=== PATIENT | male | born 1945 | race Caucasian/White ===

== ENCOUNTER → 2024-03-17 12:39 | Outpatient (REF) | payer MEDICARE, BC, SELFPAY | LOC: CLAB 12:39 | PROVIDERS: ATTENDING PHYSICIAN Surgery | DX: K52.89 Other specified noninfective gastroenteritis and colitis (principal) | CPT/HCPCS: 88305; 88341; 88342 ==

== ENCOUNTER → 2024-04-07 16:33 | Outpatient (REF) | payer MEDICARE, BC, SELFPAY | LOC: OLAB 16:33 | PROVIDERS: ATTENDING PHYSICIAN Surgery | DX: K62.89 Other specified diseases of anus and rectum (principal) | CPT/HCPCS: 88305 ==

== ENCOUNTER 2024-05-14 06:32 | Day surgery (SDC) | payer MEDICARE, BC, SELFPAY ==
--- NOTE | 2024-05-13 13:52 | PTCARENOTE ---
ABN ECG, Dr. Key notified, no further requests made.
[2024-05-14] VITALS (7 sets, daily range): BP systolic 98–125; BP diastolic 48–70
[2024-05-14] MEDS: NORMOSOL-R 1000 IV (11:50)
== END 2024-05-14 16:09 | disposition home or self-care (01) ==
LOC: SDS 06:32
PROVIDERS: ATTENDING PHYSICIAN Surgery
DX: C21.0 Malignant neoplasm of anus, unspecified (principal); K62.4 Stenosis of anus and rectum; K62.89 Other specified diseases of anus and rectum
CPT/HCPCS: 46606; 88305; 88342

== ENCOUNTER → 2024-05-21 10:47 | Outpatient (REF) | payer MEDICARE, BC, SELFPAY | LOC: HWRAD 10:47 | PROVIDERS: ATTENDING PHYSICIAN Surgery; FAMILY PHYSICIAN Family Medicine | DX: C21.0 Malignant neoplasm of anus, unspecified (principal) | CPT/HCPCS: 71260; 74177; Q9967 ==

== ENCOUNTER → 2024-06-12 08:04 | Outpatient (REF) | payer MEDICARE, BC, SELFPAY ==
[2024-06-12 10:32] LABS: Hemoglobin 15.3 g/dL (13.0-18.0); Mean Corp Hgb Conc. 35.6 g/dL (33.0-37.0); Mean Platelet Volume 9.5 fL (7.4-10.4); Platelet Count 203 10^3/uL (130-400); Red Blood Cell Count 4.78 10^6/uL (4.70-6.10); Red Cell Dist. Width 13.2 % (11.5-14.5); White Blood Cell Count 7.7 10^3/uL (4.8-10.8)
[2024-06-12 11:08] LABS: Blood Urea Nitrogen 16 mg/dl (9-20); Calcium 10.9 mg/dl (8.4-10.2); Carbon Dioxide 27 mmol/L (22-30); Chloride 97 mmol/L (98-107); Glucose 97 mg/dl (70-99); Potassium 5.6 mmol/L (3.5-5.1); Sodium 135 mmol/L (135-145); eGFR > 60.00
== END ==
LOC: SDSPAT 08:04
PROVIDERS: ATTENDING PHYSICIAN Surgery; FAMILY PHYSICIAN Family Medicine
DX: Z01.818 Encounter for other preprocedural examination (principal)
CPT/HCPCS: 36415; 80048; 85027

== ENCOUNTER 2024-06-17 06:17 | Day surgery (SDC) | payer MEDICARE, BC, SELFPAY ==
[2024-06-12 08:19] VITALS: BMI 28.9
--- NOTE | 2024-06-15 09:58 | PTCARENOTE ---
Yaz in office made aware of K 5.6 from 06/12/24.
--- NOTE | 2024-06-15 14:27 | PTCARENOTE ---
Dr Pacheco made aware of K 5.6, no further action requested.
[2024-06-17] VITALS (10 sets, daily range): BP systolic 101–143; BP diastolic 52–86; BMI 28.9
[2024-06-17] MEDS: NSS 1000 IV (06:40)
[2024-06-17] MEDS: TYLENOL 1000 MG PO (06:55)
[2024-06-17 07:12] LABS: Blood Urea Nitrogen 12 mg/dl (9-20); Calcium 10.7 mg/dl (8.4-10.2); Carbon Dioxide 23 mmol/L (22-30); Chloride 101 mmol/L (98-107); Estimated Creatinine Clearance 71 ml/min; Glucose 110 mg/dl (70-99); Potassium 4.3 mmol/L (3.5-5.1); Sodium 137 mmol/L (135-145); eGFR > 60.00
[2024-06-17] MEDS: DILAUDID 0.25 MG IV (10:03)
== END 2024-06-17 12:10 | disposition home or self-care (01) ==
LOC: SDS 06:17
PROVIDERS: ATTENDING PHYSICIAN Surgery
DX: K40.91 Unilateral inguinal hernia, without obstruction or gangrene, recurrent (principal); D17.6 Benign lipomatous neoplasm of spermatic cord
CPT/HCPCS: 49651; 88304; 88307; 80048; C1781

== ENCOUNTER → 2024-07-03 08:37 | Outpatient (REF) | payer MEDICARE, BC, SELFPAY ==
[2024-07-03] VITALS (8 sets, daily range): BP systolic 86–147; BP diastolic 57–77
[2024-07-03] MEDS: ANCEF 10 IV (09:43)
== END ==
LOC: RADI 08:37
PROVIDERS: ATTENDING PHYSICIAN Internal Medicine Hematology & Oncology; FAMILY PHYSICIAN Family Medicine; OTHER PHYSICIAN Surgery; REFERRING PHYSICIAN Radiology Radiation Oncology
DX: C21.0 Malignant neoplasm of anus, unspecified (principal)
CPT/HCPCS: 36561; 76937; 77001; 99152; 99153; C1788

== ENCOUNTER → 2024-07-13 14:51 | Outpatient (REF) | payer MEDICARE, BC, SELFPAY ==
[2024-07-13 15:33] LABS: % Basophils 0.6 % (0-2); % Eosinophils 0.6 % (0-6); % Lymphocytes 12.4 % (20.5-51.1); % Monocytes 2.9 % (1.7-9.3); % Neutrophils 82.5 % (42.2-75.2); Absolute Immature Granulocytes 0.1 10^3/uL (0-0.05); Absolute Lymphocytes 0.7 10^3/uL (1.2-3.4); Absolute Monocytes 0.2 10^3/uL (0.1-0.6); Absolute Neutrophils 4.3 10^3/uL (1.4-6.5); Hematocrit 38.4 % (39.0-52.0); Hemoglobin 13.5 g/dL (13.0-18.0); Mean Corp Hgb Conc. 35.2 g/dL (33.0-37.0); Mean Corpuscular Hgb 30.1 pg (27.0-31.0); Mean Corpuscular Volume 85.7 fL (80.0-94.0); Nucleated Red Blood Cells % 0 % (-); Platelet Count 173 10^3/uL (130-400); Red Blood Cell Count 4.48 10^6/uL (4.70-6.10); Red Cell Dist. Width 12.6 % (11.5-14.5); White Blood Cell Count 5.3 10^3/uL (4.8-10.8)
[2024-07-13 15:47] LABS: ALT (SGPT) 24 U/L (0-50); AST (SGOT) 27 U/L (17-59); Albumin 3.8 g/dl (3.5-5.0); Alkaline Phosphatase 43 U/L (38-126); Blood Urea Nitrogen 12 mg/dl (9-20); Carbon Dioxide 26 mmol/L (22-30); Chloride 94 mmol/L (98-107); Glucose 107 mg/dl (70-99); Potassium 4.2 mmol/L (3.5-5.1); Sodium 131 mmol/L (135-145); Total Bilirubin 3.9 mg/dl (0.2-1.3); eGFR > 60.00
== END ==
LOC: REG 14:51
PROVIDERS: ATTENDING PHYSICIAN Internal Medicine Hematology & Oncology; FAMILY PHYSICIAN Family Medicine
DX: C21.0 Malignant neoplasm of anus, unspecified (principal)
CPT/HCPCS: 36415; 80053; 85025

== ENCOUNTER → 2024-07-20 09:15 | Outpatient (REF) | payer MEDICARE, BC, SELFPAY ==
[2024-07-20 11:43] LABS: Hematocrit 36.6 % (39.0-52.0); Hemoglobin 13.2 g/dL (13.0-18.0); Mean Corp Hgb Conc. 36.1 g/dL (33.0-37.0); Mean Corpuscular Hgb 31.7 pg (27.0-31.0); Mean Platelet Volume 9.2 fL (7.4-10.4); Platelet Count 75 10^3/uL (130-400); Red Blood Cell Count 4.16 10^6/uL (4.70-6.10); Red Cell Dist. Width 12.4 % (11.5-14.5); White Blood Cell Count 1.6 10^3/uL (4.8-10.8)
[2024-07-20 11:44] LABS: Absolute Neutrophils -Man Diff 0.8 10^3/uL (1.4-6.5); Anisocytosis 1+; Band Neutrophils 0 % (0-3); Eosinophils 2 % (0-6); Hypochromasia 1+; Lymphocytes 24 % (20-51); Monocytes 18 % (2-9); Normal RBC Morphology No; Platelets Checked Yes; Segmented Neutrophils 56 % (42-75)
[2024-07-20 11:45] LABS: Acanthocytes 2+; Polychromasia 1+; Total Cells Counted 100
== END ==
LOC: REG 09:15
PROVIDERS: ATTENDING PHYSICIAN Internal Medicine Hematology & Oncology; FAMILY PHYSICIAN Family Medicine; OTHER PHYSICIAN Internal Medicine Hematology & Oncology
DX: C21.0 Malignant neoplasm of anus, unspecified (principal)
CPT/HCPCS: 36415; 85025

== ENCOUNTER → 2024-07-27 08:55 | Outpatient (REF) | payer MEDICARE, BC, SELFPAY ==
[2024-07-27 10:27] LABS: White Blood Cell Count 2.2 10^3/uL (4.8-10.8)
[2024-07-27 10:48] LABS: ALT (SGPT) 21 U/L (0-50); AST (SGOT) 26 U/L (17-59); Albumin 3.6 g/dl (3.5-5.0); Alkaline Phosphatase 52 U/L (38-126); Blood Urea Nitrogen 12 mg/dl (9-20); Carbon Dioxide 24 mmol/L (22-30); Chloride 98 mmol/L (98-107); Glucose 94 mg/dl (70-99); Potassium 4.2 mmol/L (3.5-5.1); Sodium 133 mmol/L (135-145); Total Bilirubin 1.9 mg/dl (0.2-1.3); Total Protein 5.7 g/dl (6.3-8.2); eGFR > 60.00
[2024-07-27 11:45] LABS: Absolute Neutrophils -Man Diff 1.3 10^3/uL (1.4-6.5); Band Neutrophils 2 % (0-3); Hematocrit 34.5 % (39.0-52.0); Hemoglobin 12.5 g/dL (13.0-18.0); Lymphocytes 23 % (20-51); Mean Corp Hgb Conc. 36.2 g/dL (33.0-37.0); Mean Corpuscular Hgb 31.1 pg (27.0-31.0); Mean Corpuscular Volume 85.8 fL (80.0-94.0); Mean Platelet Volume 8.8 fL (7.4-10.4); Metamyelocytes 2 % (-); Monocytes 13 % (2-9); Platelet Count 177 10^3/uL (130-400); Platelets Checked Yes; Red Blood Cell Count 4.02 10^6/uL (4.70-6.10); Red Cell Dist. Width 14.1 % (11.5-14.5); Segmented Neutrophils 60 % (42-75)
[2024-07-27 11:46] LABS: Acanthocytes 2+; Anisocytosis 1+; Hypochromasia 1+; Normal RBC Morphology No; Ovalocytes 1+
[2024-07-27 11:47] LABS: Total Cells Counted 100
== END ==
LOC: REG 08:55
PROVIDERS: ATTENDING PHYSICIAN Internal Medicine Hematology & Oncology; FAMILY PHYSICIAN Family Medicine
DX: C21.0 Malignant neoplasm of anus, unspecified (principal)
CPT/HCPCS: 36415; 80053; 85025

== ENCOUNTER → 2024-08-20 12:58 | Outpatient (REF) | payer MEDICARE, BC, SELFPAY | LOC: RAD 12:58 | PROVIDERS: ATTENDING PHYSICIAN Family Medicine | DX: I48.19 Other persistent atrial fibrillation (principal); I95.9 Hypotension, unspecified; R60.0 Localized edema | CPT/HCPCS: 93970 ==

== ENCOUNTER → 2024-09-21 10:12 | Outpatient (REF) | payer MEDICARE, BC, SELFPAY ==
[2024-09-21 11:11] LABS: % Basophils 0.8 % (0-2); % Eosinophils 4.6 % (0-6); % Immature Granulocytes 0.4 % (0-0.5); % Lymphocytes 9.1 % (20.5-51.1); % Monocytes 12.2 % (1.7-9.3); % Neutrophils 72.9 % (42.2-75.2); Absolute Eosinophils 0.2 10^3/uL (0-0.7); Absolute Lymphocytes 0.4 10^3/uL (1.2-3.4); Absolute Monocytes 0.6 10^3/uL (0.1-0.6); Absolute Neutrophils 3.5 10^3/uL (1.4-6.5); Hematocrit 37.4 % (39.0-52.0); Hemoglobin 12.4 g/dL (13.0-18.0); Mean Corp Hgb Conc. 33.2 g/dL (33.0-37.0); Mean Corpuscular Hgb 31.7 pg (27.0-31.0); Mean Corpuscular Volume 95.7 fL (80.0-94.0); Mean Platelet Volume 9.3 fL (7.4-10.4); Nucleated Red Blood Cells % 0 % (-); Platelet Count 145 10^3/uL (130-400); Red Blood Cell Count 3.91 10^6/uL (4.70-6.10); Red Cell Dist. Width 16.8 % (11.5-14.5); White Blood Cell Count 4.8 10^3/uL (4.8-10.8)
[2024-09-21 11:40] LABS: ALT (SGPT) 25 U/L (0-50); AST (SGOT) 30 U/L (17-59); Albumin 3.9 g/dl (3.5-5.0); Alkaline Phosphatase 45 U/L (38-126); Blood Urea Nitrogen 14 mg/dl (9-20); Calcium 10.2 mg/dl (8.4-10.2); Carbon Dioxide 30 mmol/L (22-30); Chloride 96 mmol/L (98-107); Glucose 92 mg/dl (70-99); Potassium 4.1 mmol/L (3.5-5.1); Sodium 133 mmol/L (135-145); Total Bilirubin 2.4 mg/dl (0.2-1.3); Total Protein 6.1 g/dl (6.3-8.2); eGFR > 60.00
== END ==
LOC: REG 10:12
PROVIDERS: ATTENDING PHYSICIAN Internal Medicine Hematology & Oncology; FAMILY PHYSICIAN Family Medicine
DX: C21.0 Malignant neoplasm of anus, unspecified (principal)
CPT/HCPCS: 36415; 80053; 85025

== ENCOUNTER → 2024-09-29 13:09 | Outpatient (REF) | payer MEDICARE, BC, SELFPAY | LOC: RAD 13:09 | PROVIDERS: ATTENDING PHYSICIAN Internal Medicine Interventional Cardiology; FAMILY PHYSICIAN Family Medicine | DX: I48.19 Other persistent atrial fibrillation (principal); I42.2 Other hypertrophic cardiomyopathy; E78.2 Mixed hyperlipidemia | CPT/HCPCS: 75572; Q9967 ==

== ENCOUNTER → 2024-10-06 10:10 | Outpatient (REF) | payer MEDICARE, BC, SELFPAY ==
--- NOTE | 2024-10-06 11:33 | CARDSERVLU ---
Echocardiogram with Lumason completed after protocol screening completed. Allergies verified.
Patent IV site: _new start 20 P 1st attempt RFA____
IV site flushed with 0.9% NaCl pre and post administration.
Diluted bolus method utilized to enhance visualization of ventricular de la garza.
Total volume given: __6.5__ mL
site dcd at completion of test, no issues.
Patient tolerated all procedures well without complications.
== END ==
LOC: RCS 10:10
PROVIDERS: ATTENDING PHYSICIAN Internal Medicine Interventional Cardiology; FAMILY PHYSICIAN Family Medicine
DX: I42.2 Other hypertrophic cardiomyopathy (principal); I48.19 Other persistent atrial fibrillation; E78.2 Mixed hyperlipidemia
CPT/HCPCS: 93306; Q9950

== ENCOUNTER → 2024-11-17 08:24 | Outpatient (REF) | payer MEDICARE, BC, SELFPAY | LOC: RCS 08:24 | PROVIDERS: ATTENDING PHYSICIAN Internal Medicine Interventional Cardiology; FAMILY PHYSICIAN Family Medicine | DX: I42.2 Other hypertrophic cardiomyopathy (principal); I48.19 Other persistent atrial fibrillation; I10 Essential (primary) hypertension; I51.3 Intracardiac thrombosis, not elsewhere classified | CPT/HCPCS: 93307; Q9957 ==

== ENCOUNTER 2024-12-01 06:05 | Inpatient (IN) | payer MEDICARE, BC, SELFPAY ==
[2024-11-17 11:15] LABS: % Eosinophils 1.5 % (0-6); % Immature Granulocytes 0.5 % (0-0.5); % Lymphocytes 8.5 % (20.5-51.1); % Monocytes 11.3 % (1.7-9.3); % Neutrophils 77.2 % (42.2-75.2); Absolute Eosinophils 0.1 10^3/uL (0-0.7); Absolute Lymphocytes 0.3 10^3/uL (1.2-3.4); Absolute Monocytes 0.5 10^3/uL (0.1-0.6); Absolute Neutrophils 3.1 10^3/uL (1.4-6.5); Hematocrit 38.5 % (39.0-52.0); Hemoglobin 13.4 g/dL (13.0-18.0); Mean Corp Hgb Conc. 34.8 g/dL (33.0-37.0); Mean Corpuscular Hgb 32.8 pg (27.0-31.0); Mean Corpuscular Volume 94.1 fL (80.0-94.0); Mean Platelet Volume 9.4 fL (7.4-10.4); Nucleated Red Blood Cells % 0 % (-); Platelet Count 129 10^3/uL (130-400); Red Blood Cell Count 4.09 10^6/uL (4.70-6.10); Red Cell Dist. Width 13.6 % (11.5-14.5)
[2024-11-17 11:24] LABS: ALT (SGPT) 21 U/L (0-50); AST (SGOT) 30 U/L (17-59); Alkaline Phosphatase 56 U/L (38-126); Blood Urea Nitrogen 16 mg/dl (9-20); Calcium 10.2 mg/dl (8.4-10.2); Carbon Dioxide 29 mmol/L (22-30); Chloride 98 mmol/L (98-107); Glucose 106 mg/dl (70-99); Potassium 4.3 mmol/L (3.5-5.1); Sodium 133 mmol/L (135-145); Total Protein 6.2 g/dl (6.3-8.2); eGFR > 60.00
[2024-11-17 11:25] LABS: INR 1.33; PT 16.7 Sec (11.4-14.6)
[2024-11-17 14:04] VITALS: BMI 27.4
[2024-12-01] VITALS (31 sets, daily range): BP systolic 93–126; BP diastolic 57–81; BMI 27.3
--- NOTE | 2024-12-01 08:24 | WATCHMAN.MD ---
Watchman Implant
-
ELECTROPHYSIOLOGY/INTERVENTIONAL PROCEDURE REPORT
Date of Procedure: December 01, 2024
Assisting Physician: Tim Gifford
PROCEDURES:
1. Left atrial appendage occlusion device using 27 mm WATCHMAN FLX device
2. Intracardiac echocardiography
3. Ultrasound-guided right common femoral venous access
INDICATION: Paroxysmal atrial fibrillation warranting long-term full anticoagulation with prior bleeding history secondary to prostate cancer
ACCESS: Right common femoral vein, 16Fr sheath and 9Fr. sheaths, under US guidance using micropunture kit.
HEMODYNAMICS : (mmHg)
RA Pressure : 10
LA Pressure: 15
PROCEDURE REPORT:
After informed consent and patient safety 'Timeout' the patient was intubated and sedated by the anesthesiology service. Under ultrasound guidance, the right femoral vein was accessed by Dr. Tim Gifford twice for transseptal puncture and
intracardiac ultrasound, respectively. Concomitant transesophageal echocardiogram was performed by Dr. Dexter Hairston
Baseline intracardiac ultrasound demonstrated no pericardial effusion and baseline DIMITRY images revealed a trace pericardial effusion.
After ruling out a left atrial appendage thrombus, the patient was heparinized for an ACT between 350-400 seconds and under DIMITRY and intracardiac ultrasound guidance transseptal puncture was performed by Dr. Tim Gifford using the versa cross
Inland trans-septal system in a inferior position on the inferior-superior axis and a mid position on the anterior-posterior axis. Right atrial pressure was 10 millimeters mercury and left atrial pressure was 15 millimeters mercury.
Once transseptal puncture was performed over the Inland wire which was parked in the body of the left atrium, the watchman access double curve sheath. A 5 Swiss pigtail catheter was placed into the left atrial appendage and an appendage gram was
performed using intravenous contrast dye demonstrating a windsock type anatomy that was suitable likely for a 20 mm WATCHMAN FLX device.
After appropriately prepping the device, Dr. Rachelle Marrero successfully deployed a 27 mm WATCHMAN FLX device. Device showed excellent positioning with no leaks post device deployment. 11 to 22 % compression was noted in the device after deployment.
A 'tug-test' was performed demonstrating stability of the device. Given PASS criteria were met, the device was then released successfully by Dr. Rachelle Marrero
Post procedure, DIMITRY imaging demonstrated no new or worse pericardial effusion. Sheaths and catheters were removed from the left atrium and heparin was reversed using protamine. Catheters removed from the femoral veins with [id number]-ax-xvryr suture
applied. The patient tolerated the procedure well.
RADIATION SUMMARY: Fluoro Time (min): 9.1, Dose (mGy): 201.46, DAP (Gy.cm2) : 23.0
Closure Device: Figure of 8 suture
CONCLUSIONS
1. Successful deployment of 27 mm WATCHMAN FLX device under DIMITRY and ICE guidance.
RECOMMENDATIONS
1. Given history of apical hypertrophic cardiomyopathy and recent LV thrombus, given it was not well-visualized on DIMITRY, we will first plan to repeat limited transthoracic echocardiogram with Lumason to assess presence or absence of LV thrombus. If
no LV thrombus is present or if it is smaller, our plan will be to resume home Eliquis at 5 mg twice daily for the next 3 months. In case there is a similar LV thrombus present, we would then plan to bridge with IV heparin drip into Coumadin.
2. 90-day DIMITRY post procedure to assess stability of device and rule out any irene-device leaks.
3. Figure of 8 suture removal prior to discharge.
Maintain anticoagulation regimen as noted above after watchman implantation and then reassess at the 3-month DIMITRY. If at that point the device is well-seated ,no significant leaks and no device related thrombus is observed we can stop
Eliquis/coumadin and maintain aspirin 81 mg daily
At post procedure DIMITRY leaks > 5mm are significant and require chronic full anticoagulation or consideration for leak closure. Irene-device leaks between 3 and 5 mm may also carry an increased risk. These patients will need individualized risk
assessment and discussion with Watchman team. Leaks < 3 mm are generally considered non-significant. With leak of any size suggestion is to check DIMITRY 12 mo out from implant.
Rachelle Marrero MD, FACC, [facility]
--- NOTE | 2024-12-01 10:26 | CARDSERVLU ---
Echocardiogram with Lumason completed after protocol screening completed. Allergies verified.
Patent IV site: __existing TC LAC #20___
IV site flushed with 0.9% NaCl pre and post administration.
Diluted bolus method utilized to enhance visualization of ventricular de la garza.
Total volume given: _5.0___ mL in divided doses under direction echosonographer.
Patient tolerated all procedures well without complications.
[2024-12-01 10:32] LABS: ACT-LR - POC > 397 Seconds (116-155)
--- NOTE | 2024-12-01 11:39 | WATCHMAN.MD ---
Watchman Implant
-
WATCHMAN LEFT ATRIAL APPENDAGE CLOSURE DEVICE REPORT
Date: 2024
Referring Dip Painter: Dr. Rachelle Marrero
Primary Care Provider: Dr. Chris Vanessa
History:
atrial fibrillation with [id number] = 4 as well as known apical hypertrophic cardiomyopathy with high bleeding risk in the setting of known colorectal cancer and possible need for ongoing chemo and radiation with prior history of GI bleeding leading
to disruption of anticoagulation
Watchman Team:
DIMITRY: Dr Dexter renteria M.D.
Transseptal prepress operator: Dr Tim Gifford M.D.
Implanter: Dr Rachelle Marrero M.D.
Procedure: Watchman left atrial appendage closure.
The patient was placed under general anesthesia by anesthesia.
A DIMITRY probe was placed.
Ultrasound Guidance with real-time visualization of needle insertion and vessel patency performed by nj for femoral venous Vascular Access. Images were taken and saved for the patient's permanent record. Imaging findings typical femoral venous
anatomy. Direct visualization of needle puncture into the femoral vein was observed and recorded.
A 10 Fr sheath was placed in the right femoral vein for ICE.
9 Fr sheath was placed via the right femoral vein then upsized to allow the watchman sheath
CHRISSY type: [place]
Heparin was administered to goal ACT 350-400 seconds. Fluid bolus was given.
Intracardiac ultrasound catheter was placed in the right atrium identifying the intraatrial septum for transseptal puncture.
Transseptal puncture was performed By Dr Tim Gifford. This entailed advancing a sheath with dilator into the superior vena cava and withdrawing both (monitoring intracardiac ultrasound, fluoroscopy and tip pressure) with the tip oriented
toward the atrial septum. The fossa ovalis was engaged (indicated by sudden displacement of the sheath tip as well as tenting of the fossa seen on intracardiac ultrasound). RF transseptal system was used. Left atrial catheter position was confirmed
by echocardiographic imaging, pressure monitoring (LA mean pressure 15 mm Hg) and fluoroscopy. The sheath was advanced over the dilator and positioned in the left atrium.
Dr Rachelle Marrero positioned and deployed the Watchman device.
The 14 Barbadian watchman access system sheath double curve was substituted for the transeptal sheath. A 5 Barbadian curved pigtail was then substituted for the guidewire through the watchman sheath to the ostium of the left atrial appendage. The 5
Barbadian pigtail was advanced into the left atrial appendage and angiography was performed. This allowed additional measurements assessing left atrial appendage ostium size and CHRISSY morphology.
The pigtail catheter was removed from the access sheath. A 27 mm Watchman device was flushed and then placed into the watchman access sheath and advanced through the sheath. The Watchman was clamped into the sheath. The device was deployed into
the left atrial appendage.
The PASS criteria were met. The stability tug test was performed and passed. Angiography and transesophageal echocardiogram revealed no leaks nor jets. The position was confirmed on angiography and transesophageal echo and there were no
significant shoulders. Compression ranges from 10 % to 18 %.
After meeting the PASS release criteria the device was released into the left atrial appendage.
The watchman access sheath was then removed through the transseptal into the IVC. A figure 8 suture closure was performed at the site of the femoral venous puncture and the sheath as it was removed.
Impression:
- Transseptal puncture by Dr Tim Gifford.
- Successful Deployment 27 mm WATCHMAN left atrial appendage closure device by Dr Marrero.
- Ultrasound guidance for vascular access
Recommended anticoagulation strategy for this specific patient is:
Plan is to transition from direct oral anticoagulant to warfarin and maintain warfarin for minimum of 3 months.
Transesophageal echo will be assessed in 3 months
Potentially complicating anticoagulation strategy is the presence of a left ventricular thrombus in the setting of apical hypertrophic cardiomyopathy. If there is clearing of thrombus on warfarin and there is adequate device placement with no
significant leaks and no device related thrombus plan would be to stop oral anticoagulation with close reassessment of the left ventricle for any recurrence of thrombus.
Transesophageal echocardiogram at 3 months post procedure will be used to assess for any device related thrombus, assess for any leaks, and aid in the decision making regarding altering anticoagulation/antiplatelet recommendations. At post procedure
DIMITRY leaks > 5mm are significant and require chronic full anticoagulation or consideration for leak closure. Irene-device leaks between 3 and 5 mm may also carry an increased risk. These patients will need individualized risk assessment and
discussion with Watchman team. Leaks < 3 mm are generally considered non-significant. With leak of any size suggestion is to check DIMITRY 12 mo out from implant.
Continue cardiovascular care with Dr. Marrero
cc:
Dr. Rachelle Marrero
Dr. Chris Vanessa
[2024-12-01] MEDS: COUMADIN 10 MG PO (12:07)
[2024-12-01 13:31] LABS: APTT 34.3 Sec (23.4-35.0)
--- NOTE | 2024-12-01 15:02 | CM ---
Chart reviewed. Patient is independent of ADLS, lives with his in a 2 [address], 3 MAGUI, 0 DME. Plan is for the patient to return home. CM to follow
[2024-12-01] MEDS: HEPARIN 25000 UNITS/250 ML IV (18:06)
[2024-12-01] MEDS: LIPITOR 40 MG PO (18:12)
[2024-12-01] MEDS: RESTASIS 0.05% OPHTHALMIC EMULSION 1 DROPS BOTH EYES (19:35)
--- NOTE | 2024-12-01 21:02 | PTCARENOTE ---
assumed care of patient at the change of shift. AAOx3. denies any pain. Afib with a BBB on [id number]. bp stable. ambulating in the room with no issues. +1 LE edema noted, L>R. patient states that's his baseline. + pulses. R groin site CDI.
heparin infusing per protocol. reviewed plan of care with patient and verbalized understanding. educated patient to inform RN with any changes. call luis within reach. makes needs known.
[2024-12-01] MEDS: PROTONIX 20 MG PO (22:31)
[2024-12-01] MEDS: DITROPAN 5 MG PO (22:31)
[2024-12-01] MEDS: FLOMAX 0.4 MG PO (22:31)
[2024-12-02 00:15] VITALS: BP 113/63
[2024-12-02 00:40] LABS: APTT 92.3 Sec (23.4-35.0)
[2024-12-02 04:15] VITALS: BP 116/76
[2024-12-02 06:00] VITALS: BMI 26.9
[2024-12-02 06:28] LABS: INR 1.49; PT 18.3 Sec (11.4-14.6)
[2024-12-02 06:30] LABS: APTT 93.3 Sec (23.4-35.0)
[2024-12-02 07:15] LABS: Blood Urea Nitrogen 14 mg/dl (9-20); Calcium 10.5 mg/dl (8.4-10.2); Carbon Dioxide 24 mmol/L (22-30); Chloride 99 mmol/L (98-107); Estimated Creatinine Clearance 78 ml/min; Glucose 142 mg/dl (70-99); Magnesium 1.9 mg/dl (1.6-2.3); Potassium 4.6 mmol/L (3.5-5.1); Sodium 129 mmol/L (135-145); eGFR > 60.00
[2024-12-02 07:22] LABS: Hematocrit 35.3 % (39.0-52.0); Hemoglobin 12.5 g/dL (13.0-18.0); Mean Corp Hgb Conc. 35.4 g/dL (33.0-37.0); Mean Corpuscular Hgb 32.6 pg (27.0-31.0); Mean Corpuscular Volume 92.2 fL (80.0-94.0); Platelet Count 133 10^3/uL (130-400); Red Blood Cell Count 3.83 10^6/uL (4.70-6.10); Red Cell Dist. Width 13.3 % (11.5-14.5); White Blood Cell Count 6.7 10^3/uL (4.8-10.8)
[2024-12-02 08:04] VITALS: BP 120/65
[2024-12-02] MEDS: RESTASIS 0.05% OPHTHALMIC EMULSION 1 DROPS BOTH EYES (08:57)
[2024-12-02] MEDS: LASIX 40 MG PO (08:57)
[2024-12-02] MEDS: COUMADIN 10 MG PO (08:57)
[2024-12-02] MEDS: CARDIZEM CD 300 MG PO (08:57)
[2024-12-02] MEDS: ZESTRIL 10 MG PO (09:01)
--- NOTE | 2024-12-02 09:36 | W.PN.CARDCBS ---
Addendum entered and electronically signed by Rachelle Marrero MD 12/02/24 18:40:
I saw and examined the patient.
The Oracle Software Engineer's note was reviewed and I agree with the note.
Comment: Patient is doing well status post left atrial appendage closure device/watchman placement yesterday. No issues reported at the right groin access site.
Vital signs and lab work reviewed. INR is 1.49 this morning after 10 mg of warfarin evening of the procedure. Repeat INR was 1.7 after additional 10 mg of INR this morning. On exam patient is well-appearing, out of bed in a chair, no significant
JVD, irregularly irregular heart rhythm, normal S1 and S2, 2 out of 6 systolic ejection murmur loudest right upper sternal border, abdomen is soft, nontender, nondistended with active bowel sounds, warm extremities with 1+ bilateral lower extremity
edema. His right groin access site without evidence of hematoma or bruit,
Recommendations:
1. With INR uptrending status post recent procedure with large-bore access through the right common femoral vein, will hold off on a Lovenox bridge and discharged home on p.o. Coumadin, plan to take 7.5 mg tomorrow night and recommend checking INR
as an outpatient on Saturday, December 04, 2024.
2. Educated patient to discontinue Eliquis completely.
3. Further recommendations based on INR on Saturday. INR goal 2-3 in the setting of apical thrombus with apical HOCM.
4. In the setting of a Watchman plan is to do 3 months of anticoagulation prior to rechecking a DIMITRY. Discontinue eventually of anticoagulation pending resolution of apical thrombus in the setting of apical HOCM. Of note, Eliquis was discontinued
in favor of warfarin due to persistent apical thrombus.
Rachelle Marrero MD, [facility], [facility]
Addendum entered and electronically signed by VANI Hollis 12/02/24 12:31:
Hyponatremia noted- this is a stable chronic condition and likely enhanced by procedural fluids/use of furosemide.
Original Note:
Today's Communication / Plan
-
Warfarin 10mg now, continue heparin gtt
repeat INR at 4pm
consider d/c if INR rising
DIMITRY in 3 months
Followup at [facility]
Impression / Plan
-
PCP: Chris Briceno MD
CDY: Rachelle Marrero MD
79 y/o, PAF with [id number]=7, as well as apical HOCM, with high bleeding risk in the setting of known colorectal cancer and possible need for ongoing chemo and radiation. Prior history of rectal bleeding and GIB leading to disruption of
anticoagulation. Pre-op echo 11/17 revealed severe apical HK with LV apical thrombus. HAS-BLED=4.
Presented to EP lab, now s/p Watchman device implant. Post procedure echo with persistent LV thrombus.
IMPRESSION:
Watchman device implant, 12/01/24
PAF
Apical HOCM
LV aneurysm
LV apical thrombus
Colorectal Ca, s/p chemo/xrt (ending 08/2024)
Radiation proctitis w/rectal bleeding
GIB, off eliquis
HTN
HLD
RBBB
GERD
Asthma
LE edema
BPH
PLAN:
Tele- AFib 80-120s
Right groin site stable
Eliquis discontinued and started on heparin gtt with warfarin 10mg yesterday
INR today 1.49
will give 10mg warfarin now, continue heparin, and repeat INR at 4pm
If INR rising, will set warfarin regimen and consider discharge
If INR unchanged/less, will continue heparin/warfarin load, consider lovenox bridge
Presence of LV thrombus and HOCM will complicate OAC therapy post watchman and will remain on warfarin until clearing of thrombus and adequate device placement without leaks.
3 month DIMITRY post watchman arranged
Followup at [facility] as scheduled
Progress Note - Baker Doughnut
Subjective
Date of Service: December 02, 2024
Denies cp/palps/dyspnea
oob ambulating
groin site without pain
Objective
Labs:
12/02/24 06:01
12/02/24 06:01
Labs
Hgb 12.5 g/dL (13.0-18.0) L 12/02/24 06:01
Hct 35.3 % (39.0-52.0) L 12/02/24 06:01
Plt Count 133 10^3/uL (130-400) 12/02/24 06:01
PT 18.3 Sec (11.4-14.6) H 12/02/24 06:01
INR 1.49 12/02/24 06:01
APTT 93.3 Sec (23.4-35.0) H 12/02/24 06:01
Sodium 129 mmol/L (135-145) L 12/02/24 06:01
Potassium 4.6 mmol/L (3.5-5.1) 12/02/24 06:01
BUN 14 mg/dl (9-20) 12/02/24 06:01
Creatinine 0.7 mg/dL (0.7-1.3) 12/02/24 06:01
Glucose 142 mg/dl (70-99) H 12/02/24 06:01
Vital Signs and I&O:
Vital Signs
Temp Pulse Resp BP Pulse Ox
97.5 F 84 18 120/65 99
12/02/24 08:04 12/02/24 08:04 12/02/24 08:04 12/02/24 08:04 12/02/24 08:04
Vital Signs
Temp Pulse Resp BP Pulse Ox
97.5 F 84 18 120/65 99
12/02/24 08:04 12/02/24 08:04 12/02/24 08:04 12/02/24 08:04 12/02/24 08:04
Intake & Output
11/30/24 12/01/24 12/02/24 12/03/24
06:59 06:59 06:59 06:59
Intake Total 480 / 480
Output Total 900 / 900
Balance -420 / -420
Physical Exam
Physical Exam
AAOx3, MAEE 02/08
Irreg irreg S1 S2 no murmurs
CTA bilat, non labored
soft abd, + bs
right groin site without ht/bleeding, non tender
bilat extremities w/+2 edema, L>R, with support stockings in place, palpable distal pulses
[2024-12-02 11:40] VITALS: BP 106/67
--- NOTE | 2024-12-02 12:15 | PN.CDI ---
CDI
- -
CDI:
Physician Documentation Request
Admit Date: 12/01/24 06:05
Dear Danna Kumari,
Patient admitted for watchman implant.
Sodium results:
Laboratory Tests
11/17/24 12/02/24
09:59 06:01
Sodium 133 L 129 L
Could you provide a diagnosis that supports the above lab abnormalities and additional evaluation/monitoring:
Hyponatremia
abnormal lab value clinically insignificant
Other
Use of terms such as suspected, likely, concern for, or probable (associated with a specific diagnosis that is being evaluated, monitored, or treated as if it exists) are acceptable and can be coded in the inpatient setting, when documented at the
time of discharge.
Thank you,
Cherelle Ortiz RN, BSN
CDI Specialist
tiger text
Please use your independent medical judgment in providing your response.
[2024-12-02 15:29] VITALS: BP 96/58
--- NOTE | 2024-12-02 15:32 | PTCARENOTE ---
Pt feels well, ambulating in room , offers no complaints
[2024-12-02 16:04] LABS: INR 1.73; PT 20.8 Sec (11.4-14.6)
--- NOTE | 2024-12-02 17:31 | W.PN.UPDATE ---
Update Note
Progress Note Update
Repeat INR 1.73.
Will discontinue heparin gtt.
Warfarin regimen to be 7.5mg on 12/03 PM
INR on Monday 12/04 in AM- results to warfarin clinic at [facility]- pt will be contacted with results and dosing instructions.
Dr. Marrero aware of above
D/C home.
--- NOTE | 2024-12-02 17:32 | W.DS.TRANS ---
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
-
Discharge Instructions:
Sleep Apnea Risk Intermediate
Discharge Diagnosis/Procedures Atrial fibrillation post Watchman
Diet Low Cholesterol
Driving Restrictions No driving for 24 hours
Blood Work INR on Monday 12/04- results to Dr. Marrero
Others Tests Follow up DIMITRY has been scheduled for you at
[facility] on 03/03/[address] Hairston.
Pre-admission testing is scheduled for
2024 at 10am. You will receive instructions in
the mail.
Instructions:
Stand-Alone Forms: DC Instructions- Cath/EP Lab
Changes to Home Medications: Yes
Discharge Medications:
DC Medications w/original date entered in [employer]
lisinopril 10 mg tablet 10 mg PO DAILY Blood pressure 09/30/10
cyclosporine 0.05 % eye drops in a dropperette (Restasis) 1 drp BOTH EYES BID Eye condition 09/29/14
jnwxbeuy-egl-jwsni acid 0.4 mg-lycopene 300 mcg-lutein 250 mcg tablet (Centrum Silver) 1 ea PO DAILY Supplement 09/29/14
atorvastatin 40 mg tablet 40 mg PO QPM High cholesterol 10/01/14
lansoprazole 15 mg capsule,delayed release 15 mg PO HS Gastrointestinal Issue 05/12/24
tamsulosin 0.4 mg capsule 0.4 mg PO HS Urinary Issue 05/13/24
fluticasone propionate 44 mcg/actuation HFA aerosol inhaler 2 puff inhalation BID PRN SOB 05/14/24
tdmhrqsv-tls- 250 mg-dha 90 mg-epa 160 ld-uvay-xlew-zeax capsule (Ocuvite Adult 50 Plus) 1 cap PO BID Eye Condition 05/14/24
diltiazem HCl 300 mg capsule,extended release 24 hr 300 mg PO DAILY Blood Pressure 06/15/24
loteprednol etabonate 0.5 % eye ointment (Lotemax) 1 applic ophthalmic (eye) HS Skin Issues 06/15/24
oxybutynin chloride 5 mg tablet 5 mg PO HS Urinary Issue 06/15/24
ibuprofen 200 mg tablet 400 - 600 mg (2 - 3 x 200 mg) PO Q6HPRN PRN moderate pain #1 tab 06/17/24
albuterol sulfate 90 mcg/actuation aerosol inhaler 2 puff inhalation QID PRN sob 11/13/24
furosemide 40 mg tablet 40 mg PO DAILY Fluid Retention/Swelling 11/13/24
warfarin 5 mg tablet 7.5 mg (1.5 x 5 mg) PO QPM #45 tabs 12/02/24
Home Medication Changes
STOP: eliquis
NEW: warfarin
Pending Results: No
[2024-12-02] MEDS: LIPITOR 40 MG PO (17:56)
== END 2024-12-02 18:14 | disposition home or self-care (01) | DRG 274 ==
LOC: IVU 06:05
PROVIDERS: Nuclear Medicine Nuclear Cardiology; Nurse Practitioner; Nurse Practitioner Adult Health; ADMITTING PHYSICIAN Internal Medicine Interventional Cardiology; FAMILY PHYSICIAN Family Medicine
PROC: B24BZZ4 Ultrasonography of Heart with Aorta, Transesophageal (ICD-10-PCS; 2024-12-01)
PROC: 02L73DK Occlusion of Left Atrial Appendage with Intraluminal Device, Percutaneous Approach (ICD-10-PCS; 2024-12-01)
DX: I48.19 Other persistent atrial fibrillation (principal); Z00.6 Encounter for examination for normal comparison and control in clinical research program; I25.3 Aneurysm of heart; E87.1 Hypo-osmolality and hyponatremia; I45.10 Unspecified right bundle-branch block; I10 Essential (primary) hypertension; I51.3 Intracardiac thrombosis, not elsewhere classified; I42.1 Obstructive hypertrophic cardiomyopathy; E78.5 Hyperlipidemia, unspecified; N40.0 Benign prostatic hyperplasia without lower urinary tract symptoms; J45.909 Unspecified asthma, uncomplicated; K21.9 Gastro-esophageal reflux disease without esophagitis; R60.0 Localized edema; K62.7 Radiation proctitis; Y84.2 Radiological procedure and radiotherapy as the cause of abnormal reaction of the patient, or of later complication, without mention of misadventure at the time of the procedure; Z85.048 Personal history of other malignant neoplasm of rectum, rectosigmoid junction, and anus; Z92.21 Personal history of antineoplastic chemotherapy; Z92.3 Personal history of irradiation; Z79.01 Long term (current) use of anticoagulants
CPT/HCPCS: 93308; 33340; 36415; 80048; 80053; 83735; 85025; 85027; 85347; 85610; 85730; 86850; 86900; 86901; 87070; 93005; 93355; C1892; C1894; Q9950

== ENCOUNTER → 2024-12-04 09:17 | Outpatient (REF) | payer MEDICARE, BC, SELFPAY ==
[2024-12-04 10:35] LABS: INR 2.93; PT 30.5 Sec (11.4-14.6)
== END ==
LOC: REG 09:17
PROVIDERS: ATTENDING PHYSICIAN Internal Medicine Interventional Cardiology; FAMILY PHYSICIAN Family Medicine
DX: I48.19 Other persistent atrial fibrillation (principal); Z79.01 Long term (current) use of anticoagulants
CPT/HCPCS: 36415; 85610

== ENCOUNTER → 2024-12-10 09:34 | Outpatient (REF) | payer MEDICARE, BC, SELFPAY ==
[2024-12-10 11:56] LABS: ALT (SGPT) 24 U/L (0-50); AST (SGOT) 27 U/L (17-59); Albumin 4.3 g/dl (3.5-5.0); Alkaline Phosphatase 61 U/L (38-126); Blood Urea Nitrogen 12 mg/dl (9-20); Calcium 10.8 mg/dl (8.4-10.2); Carbon Dioxide 29 mmol/L (22-30); Chloride 98 mmol/L (98-107); Glucose 100 mg/dl (70-99); Potassium 4.8 mmol/L (3.5-5.1); Sodium 132 mmol/L (135-145); Total Bilirubin 2.4 mg/dl (0.2-1.3); Total Protein 6.3 g/dl (6.3-8.2); eGFR > 60.00
== END ==
LOC: REG 09:34
PROVIDERS: ATTENDING PHYSICIAN Internal Medicine Hematology & Oncology; FAMILY PHYSICIAN Family Medicine
DX: C21.0 Malignant neoplasm of anus, unspecified (principal)
CPT/HCPCS: 36415; 80053

== ENCOUNTER → 2024-12-11 08:12 | Outpatient (REF) | payer MEDICARE, BC, SELFPAY ==
[2024-12-11 09:51] LABS: PT 47.7 Sec (11.4-14.6)
[2024-12-11 10:00] LABS: INR 5.29
== END ==
LOC: REG 08:12
PROVIDERS: ATTENDING PHYSICIAN Internal Medicine Interventional Cardiology; FAMILY PHYSICIAN Family Medicine
DX: I48.19 Other persistent atrial fibrillation (principal); Z79.01 Long term (current) use of anticoagulants
CPT/HCPCS: 36415; 85610

== ENCOUNTER → 2024-12-14 08:34 | Outpatient (REF) | payer MEDICARE, BC, SELFPAY | LOC: RAD 08:34 | PROVIDERS: ATTENDING PHYSICIAN Internal Medicine Hematology & Oncology; FAMILY PHYSICIAN Family Medicine | DX: C21.0 Malignant neoplasm of anus, unspecified (principal) | CPT/HCPCS: 71260; 74177; Q9967 ==

== ENCOUNTER → 2024-12-15 08:34 | Outpatient (REF) | payer MEDICARE, BC, SELFPAY ==
[2024-12-15 10:13] LABS: INR 2.45; PT 26.6 Sec (11.4-14.6)
== END ==
LOC: REG 08:34
PROVIDERS: ATTENDING PHYSICIAN Internal Medicine Interventional Cardiology; FAMILY PHYSICIAN Family Medicine
DX: I48.19 Other persistent atrial fibrillation (principal); Z79.01 Long term (current) use of anticoagulants
CPT/HCPCS: 36415; 85610

== ENCOUNTER → 2024-12-18 07:42 | Outpatient (REF) | payer MEDICARE, BC, SELFPAY ==
[2024-12-18 09:27] LABS: INR 3.18; PT 32.4 Sec (11.4-14.6)
== END ==
LOC: REG 07:42
PROVIDERS: ATTENDING PHYSICIAN Internal Medicine Interventional Cardiology; FAMILY PHYSICIAN Family Medicine
DX: I48.19 Other persistent atrial fibrillation (principal); Z79.01 Long term (current) use of anticoagulants
CPT/HCPCS: 36415; 85610

== ENCOUNTER → 2025-01-01 07:44 | Outpatient (REF) | payer MEDICARE, BC, SELFPAY ==
[2025-01-01 09:47] LABS: Blood Urea Nitrogen 19 mg/dl (9-20); Calcium 10.8 mg/dl (8.4-10.2); Carbon Dioxide 30 mmol/L (22-30); Chloride 100 mmol/L (98-107); Glucose 102 mg/dl (70-99); Potassium 4.5 mmol/L (3.5-5.1); Sodium 136 mmol/L (135-145); eGFR > 60.00
== END ==
LOC: REG 07:44
PROVIDERS: ATTENDING PHYSICIAN Internal Medicine Interventional Cardiology; FAMILY PHYSICIAN Family Medicine
DX: I48.19 Other persistent atrial fibrillation (principal); Z79.01 Long term (current) use of anticoagulants; R60.0 Localized edema
CPT/HCPCS: 36415; 80048; 85610

== ENCOUNTER → 2025-01-29 07:31 | Outpatient (REF) | payer MEDICARE, BC, SELFPAY ==
[2025-01-29 08:09] LABS: INR 1.93; PT 22.2 Sec (11.4-14.6)
== END ==
LOC: REG 07:31
PROVIDERS: ATTENDING PHYSICIAN Internal Medicine Interventional Cardiology; FAMILY PHYSICIAN Family Medicine
DX: I48.19 Other persistent atrial fibrillation (principal); Z79.01 Long term (current) use of anticoagulants
CPT/HCPCS: 36415; 85610

== ENCOUNTER → 2025-02-12 07:35 | Outpatient (REF) | payer MEDICARE, BC, SELFPAY ==
[2025-02-12 08:38] LABS: INR 1.89; PT 21.9 Sec (11.4-14.6)
== END ==
LOC: REG 07:35
PROVIDERS: ATTENDING PHYSICIAN Internal Medicine Interventional Cardiology; FAMILY PHYSICIAN Family Medicine
DX: I48.19 Other persistent atrial fibrillation (principal); Z79.01 Long term (current) use of anticoagulants
CPT/HCPCS: 36415; 85610

== ENCOUNTER → 2025-02-24 10:05 | Outpatient (REF) | payer MEDICARE, BC, SELFPAY ==
[2025-02-24 11:35] LABS: Blood Urea Nitrogen 18 mg/dl (9-20); Calcium 10.5 mg/dl (8.4-10.2); Carbon Dioxide 30 mmol/L (22-30); Chloride 100 mmol/L (98-107); Glucose 110 mg/dl (70-99); Potassium 3.8 mmol/L (3.5-5.1); Sodium 134 mmol/L (135-145); eGFR > 60.00
== END ==
LOC: SDSPAT 10:05
PROVIDERS: ATTENDING PHYSICIAN Nuclear Medicine Nuclear Cardiology; FAMILY PHYSICIAN Family Medicine; OTHER PHYSICIAN Internal Medicine Interventional Cardiology
DX: I48.19 Other persistent atrial fibrillation (principal)
CPT/HCPCS: 36415; 80048

== ENCOUNTER → 2025-02-26 07:30 | Outpatient (REF) | payer MEDICARE, BC, SELFPAY ==
[2025-02-26 08:29] LABS: INR 2.27; PT 25.1 Sec (11.4-14.6)
== END ==
LOC: REG 07:30
PROVIDERS: ATTENDING PHYSICIAN Internal Medicine Interventional Cardiology; FAMILY PHYSICIAN Family Medicine
DX: I48.19 Other persistent atrial fibrillation (principal); Z79.01 Long term (current) use of anticoagulants
CPT/HCPCS: 36415; 85610

== ENCOUNTER 2025-03-03 07:02 | Day surgery (SDC) | payer MEDICARE, BC, SELFPAY ==
[2025-02-24 10:18] VITALS: BMI 27.1
== END 2025-03-03 15:30 | disposition home or self-care (01) ==
LOC: CATH 07:02
PROVIDERS: ATTENDING PHYSICIAN Nuclear Medicine Nuclear Cardiology; FAMILY PHYSICIAN Family Medicine; OTHER PHYSICIAN Internal Medicine Interventional Cardiology
DX: Z45.09 Encounter for adjustment and management of other cardiac device (principal); I08.1 Rheumatic disorders of both mitral and tricuspid valves; I11.0 Hypertensive heart disease with heart failure; I50.32 Chronic diastolic (congestive) heart failure; I48.19 Other persistent atrial fibrillation; E78.2 Mixed hyperlipidemia; E78.00 Pure hypercholesterolemia, unspecified; I45.10 Unspecified right bundle-branch block; K21.9 Gastro-esophageal reflux disease without esophagitis; R60.0 Localized edema; Z79.01 Long term (current) use of anticoagulants
CPT/HCPCS: 93312; 93320; 93325

== ENCOUNTER → 2025-03-15 07:37 | Outpatient (REF) | payer MEDICARE, BC, SELFPAY ==
[2025-03-15 08:42] LABS: % Eosinophils 3.2 % (0-6); % Immature Granulocytes 0.7 % (0-0.5); % Lymphocytes 13.1 % (20.5-51.1); % Monocytes 13.4 % (1.7-9.3); % Neutrophils 68.6 % (42.2-75.2); Absolute Eosinophils 0.1 10^3/uL (0-0.7); Absolute Lymphocytes 0.5 10^3/uL (1.2-3.4); Absolute Monocytes 0.5 10^3/uL (0.1-0.6); Absolute Neutrophils 2.8 10^3/uL (1.4-6.5); Hematocrit 37.6 % (39.0-52.0); Hemoglobin 13.1 g/dL (13.0-18.0); Mean Corp Hgb Conc. 34.8 g/dL (33.0-37.0); Mean Corpuscular Hgb 32.5 pg (27.0-31.0); Mean Corpuscular Volume 93.3 fL (80.0-94.0); Mean Platelet Volume 9.1 fL (7.4-10.4); Nucleated Red Blood Cells % 0 % (-); Platelet Count 135 10^3/uL (130-400); Red Blood Cell Count 4.03 10^6/uL (4.70-6.10); Red Cell Dist. Width 14.2 % (11.5-14.5)
[2025-03-15 09:16] LABS: ALT (SGPT) 22 U/L (0-50); AST (SGOT) 28 U/L (17-59); Albumin 3.8 g/dl (3.5-5.0); Alkaline Phosphatase 50 U/L (38-126); Blood Urea Nitrogen 21 mg/dl (9-20); Calcium 10.1 mg/dl (8.4-10.2); Carbon Dioxide 29 mmol/L (22-30); Chloride 103 mmol/L (98-107); Glucose 99 mg/dl (70-99); Potassium 4.9 mmol/L (3.5-5.1); Sodium 135 mmol/L (135-145); Total Protein 5.9 g/dl (6.3-8.2); eGFR > 60.00
== END ==
LOC: REG 07:37
PROVIDERS: ATTENDING PHYSICIAN Internal Medicine Interventional Cardiology; FAMILY PHYSICIAN Family Medicine; OTHER PHYSICIAN Internal Medicine Hematology & Oncology
DX: E87.6 Hypokalemia (principal); C21.0 Malignant neoplasm of anus, unspecified
CPT/HCPCS: 36415; 80053; 85025

== ENCOUNTER → 2025-09-17 08:55 | Outpatient (REF) | payer MEDICARE, BC, SELFPAY ==
[2025-09-17 09:25] LABS: Hematocrit 37.5 % (39.0-52.0); Hemoglobin 13.4 g/dL (13.0-18.0); Mean Corp Hgb Conc. 35.7 g/dL (33.0-37.0); Mean Corpuscular Volume 94.2 fL (80.0-94.0); Nucleated Red Blood Cells % 0 % (-); Platelet Count 140 10^3/uL (130-400); Red Cell Dist. Width 13.2 % (11.5-14.5)
[2025-09-17 09:57] LABS: ALT (SGPT) 22 U/L (0-50); AST (SGOT) 31 U/L (17-59); Albumin 4.0 g/dl (3.5-5.0); Alkaline Phosphatase 53 U/L (38-126); Blood Urea Nitrogen 22 mg/dl (9-20); Calcium 10.2 mg/dl (8.4-10.2); Carbon Dioxide 29 mmol/L (22-30); Chloride 97 mmol/L (98-107); Glucose 100 mg/dl (70-99); Potassium 4.3 mmol/L (3.5-5.1); Sodium 131 mmol/L (135-145); Total Protein 6.2 g/dl (6.3-8.2); eGFR > 60.00
== END ==
LOC: REG 08:55
PROVIDERS: ATTENDING PHYSICIAN Internal Medicine Hematology & Oncology; FAMILY PHYSICIAN Family Medicine
DX: C21.0 Malignant neoplasm of anus, unspecified (principal)
CPT/HCPCS: 36415; 80053; 85025

== ENCOUNTER → 2025-09-27 07:09 | Outpatient (REF) | payer MEDICARE, BC, SELFPAY ==
[2025-09-27 09:57] LABS: ALT (SGPT) 23 U/L (0-50); AST (SGOT) 30 U/L (17-59); Albumin 4.4 g/dl (3.5-5.0); Alkaline Phosphatase 56 U/L (38-126); Blood Urea Nitrogen 18 mg/dl (9-20); Calcium 11.0 mg/dl (8.4-10.2); Carbon Dioxide 31 mmol/L (22-30); Chloride 100 mmol/L (98-107); Glucose 105 mg/dl (70-99); HDL Cholesterol 50 mg/dl; LDL Cholesterol, Calculated 49 mg/dl; Potassium 5.7 mmol/L (3.5-5.1); Sodium 135 mmol/L (135-145); Total Protein 7.0 g/dl (6.3-8.2); Very Low Density Lipoprotein 9 mg/dl (0-30); eGFR > 60.00
[2025-09-27 10:04] LABS: Vitamin D, 25-OH*** 45.2 ng/mL (30-80)
[2025-09-27 10:05] LABS: Free T3 3.97 pg/ml (2.77-5.27)
[2025-09-27 10:28] LABS: Glycohemoglobin (HgbA1c) 5.6 % (4.0-5.9)
== END ==
LOC: RAD 07:09
PROVIDERS: ATTENDING PHYSICIAN Internal Medicine Endocrinology, Diabetes & Metabolism; FAMILY PHYSICIAN Family Medicine
DX: E04.2 Nontoxic multinodular goiter (principal); K73.2 Chronic active hepatitis, not elsewhere classified; R53.83 Other fatigue; I10 Essential (primary) hypertension; Z85.048 Personal history of other malignant neoplasm of rectum, rectosigmoid junction, and anus
CPT/HCPCS: 36415; 76536; 80053; 80061; 82306; 83036; 84443; 84481